=== PATIENT | female | born 1985 | race Caucasian/White ===

== ENCOUNTER → 2017-12-21 | Outpatient (CLI) | payer OTHER | END | disposition home or self-care (01) | LOC: C.LAB1850 16:58 | PROVIDERS: ATTEND Obstetrics & Gynecology | DX: O09.522 Supervision of elderly multigravida, second trimester (principal); O36.0990 Maternal care for other rhesus isoimmunization, unspecified trimester, not applicable or unspecified ==

== ENCOUNTER 2018-05-25 15:37 | Inpatient (IN) ==
[2018-05-25 17:31] LABS: Hematocrit (blood only) 34.9 % (37-47); Hemoglobin 11.7 g/dL (12.0-16.0); Mean Corpuscular Volume 88.6 fL (80-100); Mean Platelet Volume 10.8 fL (7.4-10.4); Platelet Count 213 K/uL (130-400); RDW Coefficient of Variation 13.3 % (11.5-14.5); Red Blood Count 3.94 M/uL (4.2-5.4)
[2018-05-25 17:35] LABS: Mean Corpuscular Hgb Conc 33.5 g/dL (32-36)
== END 2018-05-27 12:33 | disposition home or self-care (01) ==
LOC: OPB 15:37 → 4S1 15:39 → 4S2 05-26 03:45